=== PATIENT | male | born 1980 | race Caucasian/White ===

== ENCOUNTER → 2023-05-25 | Outpatient (CLI) | payer OTHER ==
[2023-05-28 08:21] LABS: AMPHETAMINE,URN,QUANT 947 ng/mL; MDA,URN,QUANT <200 ng/mL; MDEA,URN,QUANT <200 ng/mL; MDMA,URN,QUANT <200 ng/mL; METHAMPHETAMINE,URN,QUANT <200 ng/mL; PHENTERMINE,URN,QUANT <200 ng/mL
== END ==
LOC: LAB SHORT 14:52 → LAB 14:52
PROVIDERS: Family Medicine
DX: Z79.899 Other long term (current) drug therapy (principal)
CPT/HCPCS: G0480